=== PATIENT | male | born 1945 | race Caucasian/White ===

== ENCOUNTER → 2017-11-10 | Outpatient (CLI) | payer MEDICARE ==
--- NOTE | 2017-11-10 15:07 | US ---
EXAMINATION TYPE: US kidneys/renal and bladder DATE OF EXAM: 11/10/2017 COMPARISON: NONE CLINICAL HISTORY: R31.9 Hematuria. EXAM MEASUREMENTS: Right Kidney: 10.2 x 4.9 x 5.3 cm Left Kidney: 11.0 x 5.6 x 5.4 cm Right Kidney: wnl Left Kidney: some tiny scattered echogenic foci, hard to differentiate between calcified vessels v sm all stones. Bladder: indented with enlarged prostate Bilateral Jets seen: yes IMPRESSION: 1. No acute changes renal ultrasound. 2. Some prominence of the prostate partially visualized
== END | disposition home or self-care (01) ==
LOC: RADUSWWP 14:22
PROVIDERS: ATTEND Internal Medicine
DX: R31.9 Hematuria, unspecified (principal)
CPT/HCPCS: 76770

== ENCOUNTER 2023-09-02 12:12 | Observation (INO) | payer MEDICARE ==
--- NOTE | 2023-09-02 12:41 | ED ---
General Adult HPI - General Chief complaint: Neuro Symptoms/Deficit Stated complaint: pos stroke Time Seen by Provider: 09/02/23 12:27 Source: patient, family, RN notes reviewed Mode of arrival: ambulatory Limitations: no limitations - History of Present Illness Initial comments: Patient is a pleasant 78-year-old male present to the emergency department with concerns for episode of confusion. Episode lasted around 15 minutes and has resolved. Patient is symptom-free at this time. Patient states he does not recall the episode at that time. At all. adds that patient was very confused during this time and did not know where he was at. No slurred speech. No weakness noted. - Related Data Allergies Allergy/AdvReac Type Severity Reaction Status Date / Time No Known Allergies Allergy Verified 09/02/23 12:21 Review of Systems ROS Statement: Those systems with pertinent positive or pertinent negative responses have been documented in the HPI. ROS Other: All systems not noted in ROS Statement are negative. Constitutional: Denies: fever ENT: Denies: ear pain Respiratory: Denies: cough Cardiovascular: Denies: chest pain Gastrointestinal: Denies: abdominal pain Genitourinary: Denies: dysuria Musculoskeletal: Denies: back pain Neurological: Reports: as per HPI, confusion. Denies: headache, weakness, numbness, paresthesias Past Medical History Past Medical History: Atrial Fibrillation, Coronary Artery Disease (CAD), Hypertension History of Any Multi-Drug Resistant Organisms: None Reported Past Surgical History: No Surgical Hx Reported Past Psychological History: No Psychological Hx Reported Smoking Status: Never smoker Past Alcohol Use History: Occasional Past Drug Use History: None Reported General Exam Limitations: no limitations General appearance: alert, in no apparent distress Head exam: Present: normocephalic Eye exam: Present: normal appearance, PERRL, EOMI ENT exam: Present: normal oropharynx Neck exam: Present: normal inspection Respiratory exam: Present: normal lung sounds bilaterally Cardiovascular Exam: Present: regular rate, normal rhythm GI/Abdominal exam: Present: soft. Absent: tenderness Extremities exam: Present: normal inspection Neurological exam: Present: alert, oriented X3, CN II-XII intact. Absent: motor sensory deficit Psychiatric exam: Present: normal affect, normal mood Skin exam: Present: normal color Course Vital Signs 09/02/23 09/02/23 09/02/23 12:18 12:21 12:42 Temperature 98 F Pulse Rate 70 65 65 Respiratory 18 16 16 Rate Blood Pressure 175/96 159/90 159/90 O2 Sat by Pulse 99 100 99 Oximetry 09/02/23 13:21 Temperature Pulse Rate 65 Respiratory 16 Rate Blood Pressure 153/93 O2 Sat by Pulse 98 Oximetry EKG Findings - EKG Results: EKG: interpreted by ERMD (Left axis.), sinus rhythm, normal QRS, normal ST/T Medical Decision Making - Medical Decision Making Was pt. sent in by a medical professional or institution (, PA, NATIONAL SALES CONSULTANT, urgent care, hospital, or fdc...) When possible be specific @ -No Did you speak to anyone other than the patient for history (EMS, parent, family, police, friend...)? What history was obtained from this source @ - helps provide history that patient does not recall Did you review nursing and triage notes (agree or disagree)? Why? @ -I reviewed and agree with nursing and triage notes Were old charts reviewed (outside hosp., previous admission, EMS record, old EKG, old radiological studies, urgent care reports/EKG's, fdc records)? Report findings @ -No old charts were reviewed Differential Diagnosis (chest pain, altered mental status, abdominal pain women, abdominal pain men, vaginal bleeding, weakness, fever, dyspnea, syncope, headache, dizziness, GI bleed, back pain, seizure, CVA, palpatations, mental health, musculoskeletal)? @ -Differential Altered Mental Status: Hypoglycemia, DKA, hypercapnia, ETOH, overdose, CO poisoning, trauma, myxedema coma, HTN encephalopathy, infection, encephalitis, psychosis, intercranial hemorrhage, hepatic encephalopathy, meningitis, CVA, this is not meant to be an all-inclusive list EKG interpreted by me (3pts min.). @ -As above X-rays interpreted by me (1pt min.). @ -X-ray shows no acute process CT interpreted by me (1pt min.). @ -CT scan of the brain does not reveal acute abnormality U/S interpreted by me (1pt. min.). @ -None done What testing was considered but not performed or refused? (CT, X-rays, U/S, labs)? Why? @ -None What meds were considered but not given or refused? Why? @ -None Did you discuss the management of the patient with other professionals (professionals i.e. , PA, NATIONAL SALES CONSULTANT, lab, RT, psych nurse, social media campaign manager, technical support specialist, teacher, sea air land officer, case checker)? Give summary @ -Case was discussed with Dr. Noel who will admit covering hospital call Was smoking cessation discussed for >3mins.? @ -No Was critical care preformed (if so, how long)? @ -No Were there social determinants of health that impacted care today? How? (Homelessness, low income, unemployed, alcoholism, drug addiction, transportation, low edu. Level, literacy, decrease access to med. care, alf, rehab)? @ -No Was there de-escalation of care discussed even if they declined (Discuss DNR or withdrawal of care, Hospice)? DNR status @ -No What co-morbidities impacted this encounter? (DM, HTN, Smoking, COPD, CAD, Cancer, CVA, ARF, Chemo, Hep., AIDS, mental health diagnosis, sleep apnea, morbid obesity)? @ -None Was patient admitted / discharged? Hospital course, mention meds given and route, prescriptions, significant lab abnormalities, going to OR and other pertinent info. @ -Patient presents with episode of confusion that is resolved. Patient does not recall the episode. Patient likely had a TIA. Patient will be admitted with neurology consult. Admission orders placed. Undiagnosed new problem with uncertain prognosis? @ -No Drug Therapy requiring intensive monitoring for toxicity (Heparin, Nitro, Insulin, Cardizem)? @ -No Were any procedures done? @ -No Diagnosis/symptom? @ -TIA Acute, or Chronic, or Acute on Chronic? @ -Acute Uncomplicated (without systemic symptoms) or Complicated (systemic symptoms)? @ -Default Side effects of treatment? @ -No Exacerbation, Progression, or Severe Exacerbation? @ -No Poses a threat to life or bodily function? How? (Chest pain, [place], [place], pneumonia, PE, COPD, DKA, ARF, appy, cholecystitis, CVA, Diverticulitis, Homicidal, Suicidal, threat to staff... and all critical care pts) @ -No - Lab Data Result diagrams: 09/02/23 12:37 09/02/23 12:37 Lab Results 09/02/23 09/02/23 09/02/23 Range/Units 12:37 12:37 12:37 WBC 3.9 (3.8-10.6) k/uL RBC 4.82 (4.30-5.90) m/uL Hgb 12.8 L (13.0-17.5) gm/dL Hct 41.2 (39.0-53.0) % MCV 85.5 (80.0-100.0) fL MCH 26.5 (25.0-35.0) pg MCHC 31.0 (31.0-37.0) g/dL RDW 16.6 H (11.5-15.5) % Plt Count 144 L (150-450) k/uL MPV 8.9 Neutrophils % 37 % Lymphocytes % 46 % Monocytes % 11 % Eosinophils % 3 % Basophils % 0 % Neutrophils # 1.4 (1.3-7.7) k/uL Lymphocytes # 1.8 (1.0-4.8) k/uL Monocytes # 0.4 (0-1.0) k/uL Eosinophils # 0.1 (0-0.7) k/uL Basophils # 0.0 (0-0.2) k/uL Hypochromasia Moderate Poikilocytosis Slight Anisocytosis Slight PT 13.5 H (10.0-12.5) sec INR 1.3 H (<1.2) APTT 23.9 (22.0-30.0) sec Sodium 137 (137-145) mmol/L Potassium 5.2 H (3.5-5.1) mmol/L Chloride 105 (98-107) mmol/L Carbon Dioxide 27 (22-30) mmol/L Anion Gap 5 mmol/L BUN 15 (9-20) mg/dL Creatinine 0.98 (0.66-1.25) mg/dL Est GFR (CKD-EPI)AfAm 85 (>60 ml/min/1.73 sqM) Est GFR (CKD-EPI)NonAf 73 (>60 ml/min/1.73 sqM) Glucose 97 (74-99) mg/dL Calcium 9.4 (8.4-10.2) mg/dL Total Bilirubin 1.3 (0.2-1.3) mg/dL AST 21 (17-59) U/L ALT 15 (4-49) U/L Alkaline Phosphatase 79 (38-126) U/L Creatine Kinase 62 (55-170) U/L Troponin I (0.000-0.034) ng/mL Total Protein 7.5 (6.3-8.2) g/dL Albumin 4.4 (3.5-5.0) g/dL 09/02/23 Range/Units 12:37 WBC (3.8-10.6) k/uL RBC (4.30-5.90) m/uL Hgb (13.0-17.5) gm/dL Hct (39.0-53.0) % MCV (80.0-100.0) fL MCH (25.0-35.0) pg MCHC (31.0-37.0) g/dL RDW (11.5-15.5) % Plt Count (150-450) k/uL MPV Neutrophils % % Lymphocytes % % Monocytes % % Eosinophils % % Basophils % % Neutrophils # (1.3-7.7) k/uL Lymphocytes # (1.0-4.8) k/uL Monocytes # (0-1.0) k/uL Eosinophils # (0-0.7) k/uL Basophils # (0-0.2) k/uL Hypochromasia Poikilocytosis Anisocytosis PT (10.0-12.5) sec INR (<1.2) APTT (22.0-30.0) sec Sodium (137-145) mmol/L Potassium (3.5-5.1) mmol/L Chloride (98-107) mmol/L Carbon Dioxide (22-30) mmol/L Anion Gap mmol/L BUN (9-20) mg/dL Creatinine (0.66-1.25) mg/dL Est GFR (CKD-EPI)AfAm (>60 ml/min/1.73 sqM) Est GFR (CKD-EPI)NonAf (>60 ml/min/1.73 sqM) Glucose (74-99) mg/dL Calcium (8.4-10.2) mg/dL Total Bilirubin (0.2-1.3) mg/dL AST (17-59) U/L ALT (4-49) U/L Alkaline Phosphatase (38-126) U/L Creatine Kinase (55-170) U/L Troponin I <0.012 (0.000-0.034) ng/mL Total Protein (6.3-8.2) g/dL Albumin (3.5-5.0) g/dL Disposition Clinical Impression: Transient cerebral ischemia Disposition: ADMITTED IP TO THIS HOSP Is patient prescribed a controlled substance at d/c from ED?: No Referrals: Nonstaff,Physician [Primary Care Provider] - 1-2 days Time of Disposition: 14:09
[2023-09-02 12:52] LABS: Anisocytosis Slight; Basophils % (A) 0 %; Eosinophils # (A) 0.1 k/uL (0-0.7); Eosinophils % (A) 3 %; HCT 41.2 % (39.0-53.0); HGB 12.8 gm/dL (13.0-17.5); Hypochromasia Moderate; Lymphocytes # (A) 1.8 k/uL (1.0-4.8); Lymphocytes % (A) 46 %; MCH 26.5 pg (25.0-35.0); MCV 85.5 fL (80.0-100.0); Mean Platelet Volume 8.9; Monocytes # (A) 0.4 k/uL (0-1.0); Monocytes % (A) 11 %; Neutrophils # (A) 1.4 k/uL (1.3-7.7); Neutrophils % (A) 37 %; Platelet Count 144 k/uL (150-450); Poikilocytosis Slight; RBC 4.82 m/uL (4.30-5.90); RDW 16.6 % (11.5-15.5); WBC 3.9 k/uL (3.8-10.6)
[2023-09-02 13:03] LABS: INR 1.3 (<1.2); Prothrombin Time 13.5 sec (10.0-12.5)
[2023-09-02 13:04] LABS: ALT 15 U/L (4-49); AST 21 U/L (17-59); African American GFR (CKD) 85 (>60 ml/min/1.73 sqM); Albumin 4.4 g/dL (3.5-5.0); Alkaline Phosphatase 79 U/L (38-126); Anion Gap 5 mmol/L; Blood Urea Nitrogen 15 mg/dL (9-20); Calcium 9.4 mg/dL (8.4-10.2); Carbon Dioxide 27 mmol/L (22-30); Chloride 105 mmol/L (98-107); Creatine Kinase 62 U/L (55-170); Glucose 97 mg/dL (74-99); Non-African American GFR(CKD) 73 (>60 ml/min/1.73 sqM); Partial Thromboplastin Time 23.9 sec (22.0-30.0); Potassium 5.2 mmol/L (3.5-5.1); Sodium 137 mmol/L (137-145); Total Bilirubin 1.3 mg/dL (0.2-1.3); Total Protein 7.5 g/dL (6.3-8.2)
--- NOTE | 2023-09-02 13:19 | XR ---
EXAMINATION TYPE: XR chest 2V DATE OF EXAM: 09/02/2023 COMPARISON: 12/05/2012 HISTORY: Shortness of breath TECHNIQUE: Frontal and lateral views of the chest are obtained. FINDINGS: Scattered senescent parenchymal changes noted. Hyperinflation compatible with COPD. No evidence for infiltrate. No evidence for atelectasis. Heart size is stable. Mediastinal structures are stable and grossly unremarkable. No evidence for hilar prominence. Degenerative changes dorsal spine. IMPRESSION: 1. No evidence for acute pulmonary disease.
--- NOTE | 2023-09-02 13:37 | CT ---
EXAMINATION TYPE: CT brain wo con DATE OF EXAM: 09/02/2023 COMPARISON: None HISTORY: ams CT DLP: 1851.7 mGycm Automated exposure control for dose reduction was used. Findings: The ventricles, basal cisterns and sulci over the convexities are within normal limits for the patien t's age and there is no mass effect or shift of midline structures. No abnormal density is seen throughout the brain parenchyma and there is no acute intra or extra-axia l hemorrhage. The posterior fossa including the brainstem, fourth ventricle and cerebellar pontine angles appear no rmal. Intraorbital contents appear normal and symmetric. Visualized paranasal sinuses and mastoid air cells are well aerated. There are mild chronic inflammatory changes in the right maxillary sinus. The calvarium is intact. IMPRESSION: There is no acute bleed or mass effect. No significant abnormality seen.
--- NOTE | 2023-09-02 13:40 | CT ---
EXAMINATION TYPE: CT angio head neck DATE OF EXAM: 09/02/2023 HISTORY: ams COMPARISON: None CT DLP: 1851.7 mGycm. Automated Exposure Control for Dose Reduction was Utilized. TECHNIQUE: CTA scan of the head and neck is performed with IV Contrast, patient injected with 65 mL of Isovue 370, axial images are obtained, coronal and sagittal reformatted images are reviewed. 3D re constructed images are created on an independent workstation and reviewed. FINDINGS: The brachiocephalic origins are widely patent and no significant stenosis. There is no significant stenosis of the common or internal carotid arteries within the neck. There is no stenosis of the vertebral arteries. Intracranially, there is no stenosis, segmental occlusion, sizable aneurysm sac or vascular malformat ion. IMPRESSION:. No significant abnormality seen. NASCET criteria was used in interpretation of this exam?
[2023-09-02] MEDS: SODIUM CHLORIDE 0.9% 1,000 ML IV SCH (14:54)
[2023-09-02] MEDS: ASPIRIN 325 MG TAB PO STA (14:55)
--- NOTE | 2023-09-02 16:39 | P.HPIM ---
History of Present Illness H&P Date: 09/02/23 Chief Complaint: Confusion 78-year-old male, history of hypertension, atrial fibrillation, coronary artery disease, present to the emergency department with concerns for episode of confusion. Episode lasted around 15 minutes and has resolved. Patient is symptom-free at this time. Patient states he does not recall the episode at that time. At all. adds that patient was very confused during this time and did not know where he was at. No slurred speech. No weakness noted. Blood work completed in ED reveals a WBC of 3.9, hemoglobin 4.8 and platelet count of 144, sodium 137, potassium 5.2, BUNs/creatinine of 15/0.98 and blood glucose of 97, troponin of 0.012 Chest x-ray is negative for any acute pulmonary process EKG reveals normal sinus rhythm with Gonsalo axis deviation CT of the head is negative for any acute bleed or mass effect CTA is negative Review of Systems REVIEW OF SYSTEMS: CONSTITUTIONAL: No fever, no malaise, no fatigue. HEENT: No recent visual problems or hearing problems. Denied any sore throat. CARDIOVASCULAR: No chest pain, orthopnea, PND, no palpitations, no syncope. PULMONARY: No shortness of breath, no cough, no hemoptysis. GASTROINTESTINAL: No diarrhea, no nausea, no vomiting, no abdominal pain. NEUROLOGICAL: No headaches, no weakness, no numbness. HEMATOLOGICAL: Denies any bleeding or petechiae. GENITOURINARY: Denies any burning micturition, frequency, or urgency. MUSCULOSKELETAL/RHEUMATOLOGICAL: Denies any joint pain, swelling, or any muscle pain. ENDOCRINE: Denies any polyuria or polydipsia. The rest of the 14-point review of systems is negative. Past Medical History Past Medical History: Atrial Fibrillation, Coronary Artery Disease (CAD), Hypertension History of Any Multi-Drug Resistant Organisms: None Reported Past Surgical History: No Surgical Hx Reported Past Psychological History: No Psychological Hx Reported Smoking Status: Never smoker Past Alcohol Use History: Occasional Past Drug Use History: None Reported Medications and Allergies Home Medications Medication Instructions Recorded Confirmed Type Cyanocobalamin (Vitamin B-12) 1,000 mcg PO DAILY 09/02/23 09/02/23 History [Vitamin B-12] Omeprazole 20 mg PO Q2D 09/02/23 09/02/23 History Sotalol HCl [Sotalol AF] 40 mg PO HS 09/02/23 09/02/23 History Sotalol HCl [Sotalol AF] 80 mg PO DAILY 09/02/23 09/02/23 History Allergies Allergy/AdvReac Type Severity Reaction Status Date / Time tetracycline AdvReac Nausea & Verified 09/02/23 15:02 Vomiting & Diarrhea Physical Exam Vitals: Vital Signs Temp Pulse Resp BP Pulse Ox 09/02/23 14:00 63 16 143/88 98 09/02/23 13:21 65 16 153/93 98 09/02/23 12:42 65 16 159/90 99 09/02/23 12:21 65 16 159/90 100 09/02/23 12:18 98 F 70 18 175/96 99 Intake and Output 09/02/23 09/02/23 09/02/23 06:59 14:59 22:59 Other: Weight 88.451 kg General appearance: alert, in no apparent distress Head exam: Present: normocephalic Eye exam: Present: normal appearance, PERRL, EOMI ENT exam: Present: normal oropharynx Neck exam: Present: normal inspection Respiratory exam: Present: normal lung sounds bilaterally Cardiovascular Exam: Present: regular rate, normal rhythm GI/Abdominal exam: Present: soft. Absent: tenderness Extremities exam: Present: normal inspection Neurological exam: Present: alert, oriented X3, CN II-XII intact. Absent: motor sensory deficit Psychiatric exam: Present: normal affect, normal mood Skin exam: Present: normal color Results CBC & Chem 7: 09/02/23 12:37 09/02/23 12:37 Labs: Abnormal Lab Results - Last 24 Hours (Table) 09/02/23 09/02/23 09/02/23 Range/Units 12:37 12:37 12:37 Hgb 12.8 L (13.0-17.5) gm/dL RDW 16.6 H (11.5-15.5) % Plt Count 144 L (150-450) k/uL PT 13.5 H (10.0-12.5) sec INR 1.3 H (<1.2) Potassium 5.2 H (3.5-5.1) mmol/L Assessment and Plan Assessment: 1. Altered mental status; TIA versus CVA -Workup in ED including CT head and CTA of head and neck was unremarkable -Patient is being admitted for further neurological evaluation -- Neurochecks per protocol -- Recommend 2D echo 2. Hyperkalemia; renal function is within normal limit; potassium is elevated at 5.2; patient not on any potassium supplement -- Will replete electrolytes tomorrow morning and make further recommendations 3. Hypertension; patient takes sotalol; we will hold for permissive hypertension 4. Gastroesophageal reflux disease; continue home dose of PPI DVT prophylaxis; SCD CODE STATUS; full code
--- NOTE | 2023-09-02 17:06 | P.CNNES ---
History of Present Illness Consult date: 09/02/23 Requesting physician: Misha Zafar Reason for Consult: tia History of Present Illness: this is an 78-year-old gentleman who presented emergency department for confusion. Some of the history was obtained from the patient's who is at bedside. seems a today the patient was doing well until probably 11:30 S he was confused according to the in which he did not know where was his keys or where they're going or the route to get there. He was the one the intended to go to the restaurant with his for lunch but again he did not know where they're going to name or the restaurant they're going to or direct dissection of the restaurant. At confusion started around 11:30ish am today and he was working on his laptop. He denies any warning signs prior to that. The whole episode lasted about 20 minutes or more. Denies any fevers.He denies of any headache, nausea vomiting, visual disturbance. He feels back to baseline in the concurs that he is back to baseline. He denies any history of TIA or stro ke or seizures. He had an episode of confusion about 6 years ago and lasted about 4 minutes . He does have underlying history of A. fib and he is on Eliquis. some of the workup during his hospital visit consisted of: blood pressure on presentation is 175/96. Temperature is 98.0 Fahrenheit. White blood cells 3.9 thousand. sodium is 137, calcium Cipro 4, AST,ALT, BUN/creatinine are within normal limits CT of the head is reported as there is no acute bleed or mass effect. No significant abnormality seen. I personally reviewed the CT and agree with her report. CT angiography of the head and neck is reported as no significant abnormality seen. Review of Systems The positive and negative as per HPI. Past Medical History Past Medical History: Atrial Fibrillation, Coronary Artery Disease (CAD), Hypertension History of Any Multi-Drug Resistant Organisms: None Reported Past Surgical History: No Surgical Hx Reported Past Psychological History: No Psychological Hx Reported Smoking Status: Never smoker Past Alcohol Use History: Occasional Past Drug Use History: None Reported Medications and Allergies Home Medications Medication Instructions Recorded Confirmed Type Cyanocobalamin (Vitamin B-12) 1,000 mcg PO DAILY 09/02/23 09/02/23 History [Vitamin B-12] Omeprazole 20 mg PO Q2D 09/02/23 09/02/23 History Sotalol HCl [Sotalol AF] 40 mg PO HS 09/02/23 09/02/23 History Sotalol HCl [Sotalol AF] 80 mg PO DAILY 09/02/23 09/02/23 History Allergies Allergy/AdvReac Type Severity Reaction Status Date / Time tetracycline AdvReac Nausea & Verified 09/02/23 15:02 Vomiting & Diarrhea Physical Examination - Vital Signs Vital Signs: Vital Signs Temp Pulse Resp BP Pulse Ox 09/02/23 14:00 63 16 143/88 98 09/02/23 13:21 65 16 153/93 98 09/02/23 12:42 65 16 159/90 99 09/02/23 12:21 65 16 159/90 100 09/02/23 12:18 98 F 70 18 175/96 99 Intake and Output 09/02/23 09/02/23 09/02/23 06:59 14:59 22:59 Other: Weight 88.451 kg GENERAL: The patient is lying in bed and is not in acute distress. NEUROLOGICAL: Higher mental function: The patient is awake, alert, oriented to self, place and time. Patient is following commands. No aphasia and no neglect. Cranial nerves: The pupils are round, equal and reactive to light and accommodation. Visual hamilton are full to confrontation throughout. Extraocular movement is intact no nystagmus is noted. Facial sensation is normal to touch throughout. The facial strength is normal throughout. Hearing is normal bilaterally to hand rub. Tongue is midline and moved [id number] without any difficulty. No dysarthria is noted. Shoulder shrug is normal bilaterally. Motor: The strength is 5 over 5 throughout. Normal tone and bulk. Cerebellum: Normal finger to nose heel to burgos bilaterally. Sensation: Sensation is normal to touch throughout. Reflexes (right/left): 2+ throughout. Plantars are downgoing bilaterally. Results - Laboratory Findings CBC and BMP: 09/02/23 12:37 09/02/23 12:37 Abnormal Lab Findings: Abnormal Labs 09/02/23 09/02/23 09/02/23 12:37 12:37 12:37 Hgb 12.8 L RDW 16.6 H Plt Count 144 L PT 13.5 H INR 1.3 H Potassium 5.2 H Assessment and Plan Assessment: This is an 78-year-old gentleman who had an episode of confusion lasting about 20 minutes or slightly more that started around 11:30 AM today. He had a confusion episode about 6 years ago. Transient episode of confusion/encephalopathy: Unknown etiology. Rule out stroke/TIA. Also rule out ?seizure History of transient confusion about 6 years ago lasting 4 minutes. History of atrial fibrillation on eliquis Plan: I ordered MRI of the brain, vitamin B12, TSH, ammonia level. ED team ordered the 2-D echo and lipid panel the patient was started on aspirin 325 daily by the ED team. Patient is on Eliquis and recommended to resume home medication. Continue checks Cardiac monitoring PT and OT notes are consulted we'll defer the rest of the medical management to primary team. The plan discussed with the patient and his was at bedside. Thank you for the consultation Time with Patient: Greater than 30
[2023-09-02] MEDS ORDERED: SOTALOL 80 MG TAB PO SCH (21:00)
[2023-09-03] MEDS: ASPIRIN 325 MG TAB PO SCH (09:01)
[2023-09-03] MEDS: SOTALOL 80 MG TAB PO SCH (09:02)
[2023-09-03] MEDS: CYANOCOBALAMIN 500 MCG TAB PO SCH (09:02)
[2023-09-03 10:09] LABS: BUN/Creat Ratio 18.22 Ratio (12.00-20.00); Blood Urea Nitrogen 16.4 mg/dL (9.0-27.0); Calcium 8.6 mg/dL (8.7-10.3); Carbon Dioxide 21.6 mmol/L (21.6-31.8); Chloride 107 mmol/L (96-109); Chol/HDL Ratio 3.08 Ratio; Glucose 88 mg/dL (70-110); LDL Cholesterol,Calculated 79.1 mg/dL (0.0-131.0); Potassium 4.2 mmol/L (3.5-5.5); Sodium 140 mmol/L (135-145); VLDL Calculation 15.38 mg/dL (5.00-40.00)
[2023-09-03 10:10] LABS: Basophils # (A) 0.02 X 10*3/uL (0.00-0.10); Basophils % (A) 0.6 %; Elliptocytes 2+; Eosinophils # (A) 0.08 X 10*3/uL (0.04-0.35); Eosinophils % (A) 2.5 %; HCT 32.5 % (39.6-50.0); HGB 10.3 g/dL (13.0-17.0); Lymphocytes # (A) 1.75 X 10*3/uL (0.90-5.00); Lymphocytes % (A) 53.7 %; MCHC 31.7 g/dL (32.0-37.0); MCV 82.1 FL (80.0-97.0); Monocytes # (A) 0.34 X 10*3/uL (0.20-1.00); Monocytes % (A) 10.4 %; NRBC Per 100 WBC 0 X 10*3/uL (0.00-0.01); Neutrophils # (A) 1.06 X 10*3/uL (1.80-7.70); Neutrophils % (A) 32.5 %; Platelet Count 105 X 10*3/uL (140-440); RBC 3.96 X 10*6/uL (4.40-5.60); RDW 15.3 % (11.5-14.5); WBC 3.26 X 10*3/uL (4.50-10.00)
--- NOTE | 2023-09-03 14:08 | MR ---
EXAMINATION TYPE: MR brain wo/w con DATE OF EXAM: 09/03/2023 1:35 PM CLINICAL INDICATION:Male, 78 years old with history of stroke. confusion of unkown etiology; [facility], [facility], Confusion of unknown etiology COMPARISON: 09/02/2023 TECHNIQUE: Multi planar, multi sequence imaging was performed through the brain including: T1, T2, In version recovery, susceptibility weighted imaging and gradient echo imaging and Diffusion weighted im aging. The patient was then given intravenous contrast and multi planar, T1 fat-saturation images wer e obtained. IV Contrast: 9 cc Gadobutrol FINDINGS: The baugh-white junctions, ventricular system, basal cisterns appear unremarkable. Diffusion-weighted imaging shows no evidence of restricted diffusion to suggest acute/subacute infarct. Intracranial ar terial flow voids are maintained. Midline structures show no abnormality. The susceptibility weighted images do not reveal any evidence for micro-hemorrhage. After administration of gadolinium, no abnor mal enhancement is seen. 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 The bone marrow signal is within normal limits. Paranasal sinuses and mastoid air cells: Mild scattered paranasal sinus disease. Visualized orbits: Orbital contents are intact. IMPRESSION: No evidence of intracranial mass, acute/subacute infarct, or abnormal enhancement.
--- NOTE | 2023-09-03 14:20 | CA ---
Transthoracic Echo Report Name: Theodore Anand Age: 78 Gender: M : 1945 Exam Date: 09/02/2023 15:10 Exam Location: [facility] Ht (in): 72 Wt (lb): 195 Ordering Physician: Misha Zafar DO Attending/Referring Phys: Corporate Travel Expert Bea Billings RCS Procedure CPT: Indications: Thrombus Cardiac Hx: Technical Quality: Very technically difficult study Contrast 1: Definity Total Dose (mL): 2 Contrast 2: Total Dose (mL): MEASUREMENTS (Male / Female) Normal Values 2D ECHO LV Diastolic Diameter PLAX 5.1 cm 4.2 - 5.9 / 3.9 - 5.3 cm LV Systolic Diameter PLAX 3.6 cm IVS Diastolic Thickness 1.2 cm 0.6 - 1.0 / 0.6 - 0.9 cm LVPW Diastolic Thickness 1.0 cm 0.6 - 1.0 / 0.6 - 0.9 cm LV Relative Wall Thickness 0.4 RV Internal Dim ED PLAX 3.1 cm LVOT Diameter 2.3 cm LV Diastolic Volume MOD BP 124.5 cm??? 67 - 155 / 56 - 104 cm??? LV Systolic Volume MOD BP 50.4 cm??? 22 - 58 / 19 - 49 cm??? LV Ejection Fraction MOD BP 59.5 % >= 55 % LV Cardiac Index MOD BP 2224.3 cm???/min???m??? LV Diastolic Volume MOD 4C 126.0 cm??? LV Systolic Volume MOD 4C 55.0 cm??? LV Ejection Fraction MOD 4C 56.3 % LV Cardiac Index MOD 4C 2131.3 cm???/min???m??? LV Diastolic Length 4C 8.7 cm LV Systolic Length 4C 6.5 cm LV Diastolic Volume MOD 2C 114.7 cm??? LV Systolic Volume MOD 2C 46.9 cm??? LV Ejection Fraction MOD 2C 59.1 % LV Cardiac Index MOD 2C 2034.5 cm???/min???m??? LV Diastolic Length 2C 8.1 cm LV Systolic Length 2C 6.4 cm Ascending Aorta Diameter 4.2 cm DOPPLER AV Peak Velocity 108.4 cm/s AV Peak Gradient 4.7 mmHg AV Mean Velocity 71.2 cm/s AV Mean Gradient 2.3 mmHg AV Velocity Time Integral 20.8 cm LVOT Peak Velocity 82.8 cm/s LVOT Peak Gradient 2.7 mmHg LVOT Velocity Time Integral 15.8 cm LVOT Stroke Volume 65.3 cm??? LVOT Stroke Volume Index 31.0 ml/m??? LVOT Cardiac Index 1960.3 cm???/min???m??? AV Area Cont Eq vti 3.1 cm??? AV Area Cont Eq pk 3.2 cm??? MV Area PHT 2.7 cm??? Mitral E Point Velocity 70.3 cm/s Mitral A Point Velocity 42.4 cm/s Mitral E to A Ratio 1.7 MV Deceleration Time 286.1 ms PV Peak Velocity 92.2 cm/s PV Peak Gradient 3.4 mmHg FINDINGS Left Ventricle Left ventricular ejection fraction is estimated at 55-60 %. Left ventricular cavity size normal. No obvious regional wall motion abnormalities. Mildly increased septal wall thickness. Right Ventricle Normal right ventricular size and function. Unable to estimate right ventricular systolic function. Right Atrium Normal right atrial size. Left Atrium Normal left atrial size. Mitral Valve Structurally normal mitral valve. No mitral stenosis. No evidence for mitral valve prolapse. Trace mitral regurgitation. Aortic Valve Trileaflet aortic valve. No aortic stenosis. Mild to moderate aortic regurgitation. Tricuspid Valve Structurally normal tricuspid valve. No tricuspid stenosis. No tricuspid regurgitation. Pulmonic Valve Structurally normal pulmonic valve. No pulmonic stenosis. Trace pulmonic regurgitation. Pericardium No pericardial effusion. Aorta Aortic annulus normal. Ascending aorta mildly enlarged. CONCLUSIONS Preserved LV size and systolic function Previewed by: Dr. Randy Sandhu MD (Electronically Signed) Final Date: 03 September 2023 14:19
[2023-09-03 15:08] VITALS: BP 134/83; PULSE 65; RESP 17; TEMP 97.9
--- NOTE | 2023-09-03 16:06 | P.PN ---
Subjective Progress Note Date: 09/03/23 Patient was initially seen by Dr. Anders Amin. Please refer to his note for details. Came to see the patient, after I reviewed the chart, but he had already signed out AMA. Objective - Vital Signs Vital signs: Vital Signs Temp 97.9 F 09/03/23 13:49 Pulse 65 09/03/23 13:49 Resp 17 09/03/23 13:49 BP 134/83 09/03/23 13:49 Pulse Ox 98 09/03/23 13:49 FiO2 Intake & Output 09/02/23 09/03/23 09/03/23 18:59 06:59 18:59 Weight 88.451 kg Other: Voiding Method Toilet # Voids 0 3 3 - Labs CBC & Chem 7: 09/03/23 05:57 09/03/23 05:57 Labs: Abnormal Lab Results - Last 24 Hours (Table) 09/03/23 09/03/23 Range/Units 05:57 05:57 WBC 3.26 L (4.50-10.00) X 10*3/uL RBC 3.96 L (4.40-5.60) X 10*6/uL Hgb 10.3 L (13.0-17.0) g/dL Hct 32.5 L (39.6-50.0) % MCH 26.0 L (27.0-32.0) pg MCHC 31.7 L (32.0-37.0) g/dL RDW 15.3 H (11.5-14.5) % Plt Count 105 L (140-440) X 10*3/uL Neutrophils # 1.06 L (1.80-7.70) X 10*3/uL Elliptocytes 2+ A Calcium 8.6 L (8.7-10.3) mg/dL Assessment and Plan Assessment: This is an 78-year-old gentleman who had an episode of confusion lasting about 20 minutes or slightly more that started around 11:30 AM today. He had a confusion episode about 6 years ago. Transient episode of confusion/encephalopathy: Unknown etiology. Rule out stroke/TIA. Also rule out ?seizure History of transient confusion about 6 years ago lasting 4 minutes. History of atrial fibrillation on eliquis Plan: Review of chart as below. MRI of the brain with and without contrast revealed no evidence of intracranial mass, acute/subacute infarct or abnormal enhancement. I personally reviewed MRI agree with the findings. 2-D echo revealed normal left ventricular size with EF 55 to 60%. No obvious regional wall motion abnormalities. Mildly increased septal wall thickness. Mild to moderate AR. Lipid panel cholesterol 140, LDL 79, HDL 45, triglycerides 76. B12 598, TSH 2.14, ammonia < 9 Patient reportedly takes Eliquis 5 mg twice daily. However it was not mentioned in the home medication list. Discussed with patient's nurse, who mentioned that patient is from [place], and probably all medications were not reported. However he will take Eliquis at home. Dr. Amin has recommended to patient to be resumed on Eliquis and to resume home medication. Neurologically patient was clear, but apparently he has already signed out AGAINST MEDICAL ADVICE, and is off the floor. Patient was not seen by myself.
--- NOTE | 2023-09-03 17:06 | P.PN ---
Subjective Progress Note Date: 09/03/23 78-year-old male, history of hypertension, atrial fibrillation, coronary artery disease, present to the emergency department with concerns for episode of confusion. Episode lasted around 15 minutes and has resolved. Patient is symptom-free at this time. Patient states he does not recall the episode at that time. At all. adds that patient was very confused during this time and did not know where he was at. No slurred speech. No weakness noted. Blood work completed in ED reveals a WBC of 3.9, hemoglobin 4.8 and platelet count of 144, sodium 137, potassium 5.2, BUNs/creatinine of 15/0.98 and blood glucose of 97, troponin of 0.012 Chest x-ray is negative for any acute pulmonary process EKG reveals normal sinus rhythm with [place] axis deviation CT of the head is negative for any acute bleed or mass effect CTA is negative Objective - Vital Signs Vital signs: Vital Signs Temp 97.7 F 09/03/23 08:18 Pulse 73 09/03/23 08:18 Resp 18 09/03/23 08:18 BP 145/81 09/03/23 08:18 Pulse Ox 97 09/03/23 08:18 FiO2 Intake & Output 09/02/23 09/03/23 09/03/23 18:59 06:59 18:59 Weight 88.451 kg Other: Voiding Method Toilet # Voids 0 3 - Exam General appearance: alert, in no apparent distress Head exam: Present: normocephalic Eye exam: Present: normal appearance, PERRL, EOMI ENT exam: Present: normal oropharynx Neck exam: Present: normal inspection Respiratory exam: Present: normal lung sounds bilaterally Cardiovascular Exam: Present: regular rate, normal rhythm GI/Abdominal exam: Present: soft. Absent: tenderness Extremities exam: Present: normal inspection Neurological exam: Present: alert, oriented X3, CN II-XII intact. Absent: motor sensory deficit Psychiatric exam: Present: normal affect, normal mood Skin exam: Present: normal color - Labs CBC & Chem 7: 09/03/23 05:57 09/03/23 05:57 Labs: Abnormal Lab Results - Last 24 Hours (Table) 09/02/23 09/02/23 09/02/23 Range/Units 12:37 12:37 12:37 WBC (4.50-10.00) X 10*3/uL RBC (4.40-5.60) X 10*6/uL Hgb 12.8 L (13.0-17.5) gm/dL Hct (39.6-50.0) % MCH (27.0-32.0) pg MCHC (32.0-37.0) g/dL RDW 16.6 H (11.5-15.5) % Plt Count 144 L (150-450) k/uL Neutrophils # (1.80-7.70) X 10*3/uL Elliptocytes PT 13.5 H (10.0-12.5) sec INR 1.3 H (<1.2) Potassium 5.2 H (3.5-5.1) mmol/L Calcium (8.7-10.3) mg/dL 09/03/23 09/03/23 Range/Units 05:57 05:57 WBC 3.26 L (4.50-10.00) X 10*3/uL RBC 3.96 L (4.40-5.60) X 10*6/uL Hgb 10.3 L (13.0-17.5) gm/dL Hct 32.5 L (39.6-50.0) % MCH 26.0 L (27.0-32.0) pg MCHC 31.7 L (32.0-37.0) g/dL RDW 15.3 H (11.5-15.5) % Plt Count 105 L (150-450) k/uL Neutrophils # 1.06 L (1.80-7.70) X 10*3/uL Elliptocytes 2+ A PT (10.0-12.5) sec INR (<1.2) Potassium (3.5-5.1) mmol/L Calcium 8.6 L (8.7-10.3) mg/dL Assessment and Plan Assessment: 1. Altered mental status; TIA versus CVA -Workup in ED including CT head and CTA of head and neck was unremarkable -Patient is being admitted for further neurological evaluation -- Neurochecks per protocol -- Recommend 2D echo 2. Hyperkalemia; renal function is within normal limit; potassium is elevated at 5.2; patient not on any potassium supplement -- Will replete electrolytes tomorrow morning and make further recommendations 3. Hypertension; patient takes sotalol; we will hold for permissive hypertens ion 4. Gastroesophageal reflux disease; continue home dose of PPI DVT prophylaxis; SCD CODE STATUS; full code
[2023-09-03] MEDS ORDERED: SOTALOL 80 MG TAB PO SCH (21:00)
[2023-09-04] MEDS ORDERED: PANTOPRAZOLE 40 MG TABLET PO SCH (07:30)
== END 2023-09-03 16:26 | disposition home or self-care (01) ==
LOC: EC 12:12 → 4SSUR 14:10
PROVIDERS: ADMIT Internal Medicine; ATTEND Internal Medicine
DX: G93.40 Encephalopathy, unspecified (principal); E87.5 Hyperkalemia; I48.91 Unspecified atrial fibrillation; I10 Essential (primary) hypertension; I25.10 Atherosclerotic heart disease of native coronary artery without angina pectoris; K21.9 Gastro-esophageal reflux disease without esophagitis; Z79.899 Other long term (current) drug therapy; Z88.1 Allergy status to other antibiotic agents; Z79.01 Long term (current) use of anticoagulants
CPT/HCPCS: 99285; 36415; 93005; 97161; 80061; 80053; 80048; 84443; 82607; 82140; 82550; 84484; 85025 ×2; 85610; 85730; 71046; 70496; 70450; 70498; 70553; G0378 ×2; C8929; Q9957; A9585; Q9967; 93306

== ENCOUNTER → 2023-12-13 | Outpatient (CLI) | payer MEDICARE ==
[2023-12-13 09:05] LABS: Anisocytosis Slight; HGB 9.7 gm/dL (13.0-17.5); Hypochromasia Marked; MCH 23.3 pg (25.0-35.0); MCHC 29.5 g/dL (31.0-37.0); MCV 78.9 fL (80.0-100.0); Mean Platelet Volume 9.1; Microcytosis Slight; Platelet Count 181 k/uL (150-450); Poikilocytosis Slight; RBC 4.18 m/uL (4.30-5.90); RDW 17.8 % (11.5-15.5); WBC 2.7 k/uL (3.8-10.6)
[2023-12-13 09:11] LABS: African American GFR (CKD) >90 (>60 ml/min/1.73 sqM); Blood Urea Nitrogen 13 mg/dL (9-20); Non-African American GFR(CKD) 81 (>60 ml/min/1.73 sqM)
[2023-12-13 09:16] LABS: ALT 13 U/L (4-49); AST 23 U/L (17-59); African American GFR (CKD) >90 (>60 ml/min/1.73 sqM); Albumin 4.3 g/dL (3.5-5.0); Albumin/Globulin Ratio 1.7; Alkaline Phosphatase 60 U/L (38-126); Anion Gap 5 mmol/L; Blood Urea Nitrogen 13 mg/dL (9-20); Calcium 9.4 mg/dL (8.4-10.2); Carbon Dioxide 26 mmol/L (22-30); Chloride 109 mmol/L (98-107); Globulin 2.5 g/dL; Glucose 104 mg/dL (74-99); Non-African American GFR(CKD) 81 (>60 ml/min/1.73 sqM); Potassium 4.8 mmol/L (3.5-5.1); Sodium 140 mmol/L (137-145); Total Bilirubin 1.4 mg/dL (0.2-1.3); Total Protein 6.8 g/dL (6.3-8.2)
--- NOTE | 2023-12-13 10:17 | CT ---
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 CT DLP: 1305.8 mGycm CONTRAST: CTA abdominal aorta with 3-D reconstruction is performed with Oral Contrast and without and with IV C ontrast, patient injected with 100ml mL of Isovue 370. Contrast CTA of the abdominal aorta was performed from the lung bases through the base of the pelvis. 3-D reconstruction imaging obtained at a separate workstation. CONTRAST CT ABDOMEN AND PELVIS Lung bases: No nodule or infiltrate seen. 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 Stent graft is patent. No evidence for endoleak. Normal perfusion of the kidneys and major branch ve ssels. LIVER/GB- No significant abnormality is seen. PANCREAS- No significant abnormality is seen. SPLEEN- No significant abnormality is seen. ADRENALS- No significant abnormality is seen. KIDNEYS/BLADDER- No significant abnormality is seen. BOWEL- No Significant abnormality GENITAL ORGANS: Prostate gland enlargement noted. LYMPH NODES- No greater than 1cm abdominal or pelvic lymph nodes areappreciated. OSSEOUS STRUCTURES- No significant abnormality is seen. OTHER- No significant abnormality is seen. IMPRESSION- Aortobiiliac stent graft noted in place without evidence for endoleak.
[2023-12-13 16:23] LABS: Chol/HDL Ratio 2.43 Ratio; LDL Cholesterol,Calculated 72.4 mg/dL (0.0-131.0); Prostate Specific Antigen 1.25 ng/mL (0.000-6.500); VLDL Calculation 15.28 mg/dL (5.00-40.00)
== END | disposition home or self-care (01) ==
LOC: RADCTMAIN 08:20
PROVIDERS: ATTEND Surgery Vascular Surgery
DX: Z00.00 Encounter for general adult medical examination without abnormal findings (principal); I71.40 Abdominal aortic aneurysm, without rupture, unspecified; Z79.899 Other long term (current) drug therapy
CPT/HCPCS: 84153; 80061; 80053; 82607; 82565; 83735; 84443; 84520; 85027; 36415; 74174; Q9967